=== PATIENT | female | born 1940 | race Caucasian/White ===

== ENCOUNTER 2020-07-25 18:00 | Emergency (ER) | payer OTHER ==
[~2020-07-25] VITALS: Ht 149.9 cm; Wt 48.1 kg
[~2020-07-25 18:00] MED LIST: ASPI81CH; CALCIUM; CHOL10002; CITA20 PO; Citalopram HBr40 MG; FISH1000; GABA600 PO; HYDSUL200 PO; LEVSOD50 PO; PRED5 PO
[2020-07-25 18:40] LABS: BASOPHILS ABSOLUTE AUTO 0.03 K/mm3 (0.00-0.23); BASOPHILS PERCENT AUTO 1 % (0-2); EOSINOPHILS ABSOLUTE AUTO 0.05 K/mm3 (0.00-0.68); EOSINOPHILS PERCENT AUTO 1 % (0-6); Hematocrit 41.7 % (33.0-51.0); IMMATURE GRAN ABSOLUTE AUTO 0.01 K/mm3 (0.00-0.10); IMMATURE GRAN PERCENT AUTO 0 % (0-1); LYMPHOCYTES ABSOLUTE AUTO 1.17 K/mm3 (0.84-5.20); LYMPHOCYTES PERCENT AUTO 18 % (21-46); MONOCYTES ABSOLUTE AUTO 0.91 K/mm3 (0.16-1.47); MONOCYTES PERCENT AUTO 14 % (4-13); Mean Corpuscular HGB 30.2 pg (26.0-34.0); Mean Corpuscular HGB Conc 31.2 g/dL (31.5-36.5); Mean Corpuscular Volume 97 fL (80-100); Mean Platelet Volume 11.8 fL (9.1-12.4); NEUTROPHILS ABSOLUTE AUTO 4.22 K/mm3 (1.96-9.15); NEUTROPHILS PERCENT AUTO 66 % (41-73); Platelet Count 197 K/mm3 (150-400); RDW Coefficient Variation 17.5 % (11.7-14.2); RDW Standard Deviation 61.1 fL (35.1-46.3); White Blood Cell Count 6.39 K/mm3 (4.00-11.30)
[2020-07-25 19:14] LABS: Alanine Aminotransfer (ALT/SGP 32 U/L (12-78); Albumin, Blood 2.9 g/dL (3.4-5.0); Albumin/Globulin Ratio 0.4 (0.8-1.8); Alk Phos 92 U/L (50-136); Anion Gap 2 mmol/L (6-16); Aspartate Aminotrans (AST/SGOT 52 U/L (12-37); Bilirubin, Total 0.6 mg/dL (0.1-1.0); Blood Urea Nitrogen 36 mg/dL (8-24); Bun/Creatinine Ratio 18.2 (12.0-20.0); CO2, Blood 25 mmol/L (21-32); Calcium, Blood 9.7 mg/dL (8.5-10.1); Chloride, Blood 110 mmol/L (98-108); Creatinine, Blood 1.98 mg/dL (0.40-1.00); Globulin, Blood 7.6 g/dL (2.2-4.0); Glomerular Filtration Rate 26 (60-); Glucose, Blood 106 mg/dL (70-99); Potassium, Blood 5.1 mmol/L (3.5-5.5); Sodium, Blood 137 mmol/L (136-145); Total Protein, Blood 10.5 g/dL (6.4-8.2); Troponin I <0.015 ng/mL (0.000-0.040)
== END 2020-07-25 21:48 | disposition home or self-care (01) ==
LOC: ER 18:00
PROVIDERS: Physician Assistant
DX: R07.81 Pleurodynia (principal); E03.9 Hypothyroidism, unspecified; Z88.2 Allergy status to sulfonamides; Z79.82 Long term (current) use of aspirin; Z79.899 Other long term (current) drug therapy; Z87.891 Personal history of nicotine dependence
CPT/HCPCS: 36415; 71045; 80053; 83690; 84484; 85025; 93005; 93010; 99284-25

== ENCOUNTER 2023-12-11 14:27 | Inpatient (IN) | payer OTHER ==
[~2023-12-11] VITALS: Ht 149.9 cm; Wt 46.6 kg
[~2023-12-11 14:27] MED LIST changes: +HYDR1TAB94 PO
[2023-12-11] MEDS ORDERED: SODBIC650 PO (14:41)
[2023-12-11] MEDS ORDERED: SYNTHROID50 MC1 PO (14:41)
[2023-12-11] MEDS ORDERED: FUROSEMIDE40 MG PO (14:41)
[2023-12-11] MEDS ORDERED: LOKELMA10 GM PO (14:41)
[2023-12-11] MEDS ORDERED: GABAPENTIN600 MG PO (14:41)
[2023-12-11] MEDS ORDERED: Acetaminophen 500 MG Tab PO ONE (15:20)
[2023-12-11 15:39] LABS: BASOPHILS ABSOLUTE AUTO 0.02 K/mm3 (0.00-0.23); BASOPHILS PERCENT AUTO 1 % (0-2); EOSINOPHILS ABSOLUTE AUTO 0.09 K/mm3 (0.00-0.68); EOSINOPHILS PERCENT AUTO 2 % (0-6); Hematocrit 35.7 % (33.0-51.0); Hemoglobin 10.9 g/dL (11.5-16.0); IMMATURE GRAN ABSOLUTE AUTO 0.01 K/mm3 (0.00-0.10); IMMATURE GRAN PERCENT AUTO 0 % (0-1); LYMPHOCYTES ABSOLUTE AUTO 1.01 K/mm3 (0.84-5.20); LYMPHOCYTES PERCENT AUTO 25 % (21-46); MONOCYTES ABSOLUTE AUTO 0.36 K/mm3 (0.16-1.47); MONOCYTES PERCENT AUTO 9 % (4-13); Mean Corpuscular HGB 31.1 pg (26.0-34.0); Mean Corpuscular HGB Conc 30.5 g/dL (31.5-36.5); Mean Corpuscular Volume 102 fL (80-100); NEUTROPHILS ABSOLUTE AUTO 2.51 K/mm3 (1.96-9.15); NEUTROPHILS PERCENT AUTO 63 % (41-73); Platelet Count 156 K/mm3 (150-400); RDW Coefficient Variation 17.2 % (11.7-14.2); RDW Standard Deviation 60.7 fL (35.1-46.3); Red Blood Cell Count 3.51 M/mm3 (3.80-5.20)
[2023-12-11 16:02] LABS: Albumin, Blood 2.7 g/dL (3.4-5.0); Albumin/Globulin Ratio 0.4 (0.8-1.8); Bilirubin, Total 0.4 mg/dL (0.1-1.0); Bun/Creatinine Ratio 20.5 (12.0-20.0); Creatinine, Blood 1.76 mg/dL (0.40-1.00); Globulin, Blood 6.9 g/dL (2.2-4.0); Potassium, Blood 6.1 mmol/L (3.5-5.5); Total Protein, Blood 9.6 g/dL (6.4-8.2)
[2023-12-11] MEDS ORDERED: CeFAZolin Sodium 2,000 MG in NS 100 ML IV SCH (16:20)
[2023-12-11] MEDS ORDERED: Tranexamic Acid 100 ML IV SCH (16:25)
[2023-12-11 16:59] LABS: Source, Urine Clean Catch
[2023-12-11 17:06] LABS: Appearance, Urine Clear (Clear); Bilirubin, Urine Neg (Neg); Blood, Urine Neg (Neg); Glucose Qualitative, Urine Neg (Neg); Ketones, Urine Neg (Neg); Leukocyte Esterase, Urine Neg (Neg); Nitrite, Urine Neg (Neg); Protein, Urine Neg (Neg); Specific Gravity, Urine 1.005 (1.003-1.022); Urobilinogen, Urine NORM (Normal)
[2023-12-11 17:16] LABS: Color, Urine Pale Yellow (P-Yellow)
[2023-12-11] MEDS ORDERED: Ondansetron HCl 2 MG / ML 2ML Vial IV PRN (18:30)
[2023-12-11] MEDS ORDERED: OxyCODONE HCL 5 MG TAB PO PRN (18:30)
[2023-12-11] MEDS ORDERED: FLU VACC TS2024-25(6MOS UP)/PF 45 MCG/0.5 ML SYRINGE IM SCH (18:30)
[2023-12-11] MEDS ORDERED: Acetaminophen 325 MG TABLET PO PRN (18:30)
[2023-12-11] MEDS ORDERED: FentaNYL Citrate 50 MCG/ML 2 ML Injection IV PRN (18:30)
[2023-12-11] MEDS ORDERED: CALCIUM GLUC IN NACL, ISO-OSM 100 ML IV ONE (18:30)
[2023-12-11] MEDS ORDERED: Sodium Bicarb 8.4% 1 MEQ/ML 50 ML Vial IV ONE (18:50)
[2023-12-11] MEDS ORDERED: Sodium Zirconium Cyclosilicate 10 GM Packet PO SCH (19:00)
[2023-12-11] MEDS ORDERED: Dextrose 50% 50 ML Vial IV ONE (19:50)
[2023-12-11 19:55] LABS: Albumin, Blood 2.8 g/dL (3.4-5.0); Anion Gap 8 mmol/L (3-11); Blood Urea Nitrogen 36 mg/dL (8-24); Bun/Creatinine Ratio 19.5 (12.0-20.0); CO2, Blood 21 mmol/L (21-32); Calcium, Blood 8.4 mg/dL (8.5-10.1); Chloride, Blood 117 mmol/L (98-108); Creatinine, Blood 1.85 mg/dL (0.40-1.00); Glomerular Filtration Rate 26 (60-); Glucose, Blood 92 mg/dL (70-99); Phosphorus, Blood 1.8 mg/dL (2.5-4.9); Potassium, Blood 5.7 mmol/L (3.5-5.5); Sodium, Blood 140 mmol/L (136-145)
[2023-12-11] MEDS ORDERED: Insulin Regular 100 Unit/ML 1ML Dose IV ONE (20:00)
[2023-12-11] MEDS ORDERED: D5W-NS 1,000 ML IV SCH (20:30)
[2023-12-11] MEDS ORDERED: Sodium Phosphate 10 MM in NS 250 ML IV SCH (20:30)
[2023-12-11 21:32] VITALS: BP 143/79
--- NOTE | 2023-12-11 21:45 | NUR ---
ARRIVAL TO UNIT PT ARRIVED TO UNIT VIA GURNEY FROM ER. PT TRANSFERED TO BED WITH SLIDING SHEET. PT NOT HAVING VERY MUCH PAIN AT THIS TIME. DENIES ANY N/T IN LLE. ABLE TO WIGGLE TOES AND HAS GOOD PULSES. VSS. PT FLUIDS STARTED. RIOS IN PLACE BY ER, DRAINING YELLOW URINE. NO OTHER CONCERNS AT THIS TIME, CALL LIGHT WITHIN REACH.
[2023-12-12] VITALS (23 sets, daily range): BP systolic 75–136; BP diastolic 55–85
[2023-12-12 04:31] LABS: Hematocrit 39.5 % (33.0-51.0); Hemoglobin 12.2 g/dL (11.5-16.0); Mean Corpuscular HGB 31.3 pg (26.0-34.0); Mean Corpuscular HGB Conc 30.9 g/dL (31.5-36.5); Mean Corpuscular Volume 101 fL (80-100); Mean Platelet Volume 10.6 fL (9.1-12.4); Platelet Count 145 K/mm3 (150-400); RDW Coefficient Variation 17.2 % (11.7-14.2); RDW Standard Deviation 60.3 fL (35.1-46.3); White Blood Cell Count 3.88 K/mm3 (4.00-11.30)
--- NOTE | 2023-12-12 04:31 | NUR ---
SHIFT SUMMARY NO ACUTE EVENTS SINCE COMING TO THE UNIT. PIN HAS BEEN MANAGED PER EMAR. RIOS DRAINING CLEAR YELLOW URINE. PT ABLE TO WIGGLE TOES. PT REMAINS NPO FOR SURGERY TODAY. NO OTHER CONCERNS AT THIS TIME, CALL LIGHT WITHIN REACH
[2023-12-12 04:54] LABS: Albumin, Blood 2.8 g/dL (3.4-5.0); Anion Gap 10 mmol/L (3-11); Blood Urea Nitrogen 33 mg/dL (8-24); Bun/Creatinine Ratio 17.9 (12.0-20.0); CO2, Blood 19 mmol/L (21-32); Calcium, Blood 8.7 mg/dL (8.5-10.1); Chloride, Blood 117 mmol/L (98-108); Creatinine, Blood 1.84 mg/dL (0.40-1.00); Glomerular Filtration Rate 27 (60-); Glucose, Blood 102 mg/dL (70-99); Magnesium, Blood 2.2 mg/dL (1.6-2.4); Phosphorus, Blood 2.7 mg/dL (2.5-4.9); Potassium, Blood 5.4 mmol/L (3.5-5.5); Sodium, Blood 141 mmol/L (136-145)
[2023-12-12] MEDS ORDERED: Levothyroxine Sodium 0.05 MG Tab PO SCH (06:00)
[2023-12-12] MEDS ORDERED: Sodium Bicarb 8.4% Inj 150 MEQ in Dextrose 5% 1,000 ML IV SCH (08:00)
[2023-12-12] MEDS ORDERED: Sodium Bicarbonate 650 MG Tab PO SCH (09:00)
[2023-12-12] MEDS ORDERED: Lidocaine 2%-Epineph 1:200000 20 ML SDV ONE (11:27)
[2023-12-12] MEDS ORDERED: Lactated Ringer's 1,000 ML IV SCH (12:30)
[2023-12-12] MEDS ORDERED: propofoL 20 ML IV ONE (12:41)
[2023-12-12] MEDS ORDERED: Ondansetron HCl 2 MG / ML 2ML Vial ONE (13:11)
[2023-12-12] MEDS ORDERED: FentaNYL Citrate 50 MCG/ML 2 ML Injection ONE ×2 (13:15→14:06)
--- NOTE | 2023-12-12 13:29 | NUR ---
PT TO OR AT APPROXIMATELY 1230
[2023-12-12] MEDS ORDERED: Ketorolac Tromethamine 30mg Vial ONE (13:31)
--- NOTE | 2023-12-12 14:38 | NUR ---
arrived back to unit from pacu AWAKE AND ALERT. VSS. DENIES PAIN OR N/V. PROVIDED DRINK AND SNACKS. E INCISIONS TO L HIP CDI W/GAUZE AND TEGADERM. DAUGHTER BEDSIDE. CALL LIGHT IN REACH.
[2023-12-12] MEDS ORDERED: NS 500 ML IV ONE (18:30)
[2023-12-12] MEDS ORDERED: NS 1,000 ML IV SCH (18:30)
[2023-12-12] MEDS ORDERED: NS 1,000 ML IV ONE (18:32)
--- NOTE | 2023-12-12 18:57 | NUR ---
SUMMARY PT HYPOTENSIVE AND TACHY. CALLED DR CORTEZ AND OBTAINED ORDERS FOR STAT RP AND FLUIDS. ORDERS TO CALL DR CORTEZ WITH RP RESULTS WHEN RECEIVED. WHILE SPEAKING TO DR CORTEZ, TELE CALLED AND ADVISED SUSTAINABLE DESIGN CONSULTANT THAT PT WAS HAVING ST CHANGES NOTED ON TELE. EKG DONE AND DR TERRY CALLED WHO ORDERED STAT TROPONIN. PT DENIES ANY CP, PALPITATIONS OR SOB. NS BOLUS RUNNING PER ORDERS AND LABS DRAWN. RESULTS PENDING.
--- NOTE | 2023-12-12 19:10 | NUR ---
REPORT GIVEN AND CARE TURNED OVER TO ANDREW JIMENEZ RN.
[2023-12-12 19:16] LABS: Albumin, Blood 2.4 g/dL (3.4-5.0); Anion Gap 9 mmol/L (3-11); Blood Urea Nitrogen 32 mg/dL (8-24); Bun/Creatinine Ratio 16.4 (12.0-20.0); CO2, Blood 22 mmol/L (21-32); Chloride, Blood 116 mmol/L (98-108); Creatinine, Blood 1.95 mg/dL (0.40-1.00); Glomerular Filtration Rate 25 (60-); Glucose, Blood 204 mg/dL (70-99); Phosphorus, Blood 3.5 mg/dL (2.5-4.9); Sodium, Blood 142 mmol/L (136-145)
--- NOTE | 2023-12-12 19:52 | NUR ---
CALLED LABS TO JESUSITA AND DR CORTEZ INCLUDING CHEM PROFILE AND TROP.NO CHANGE OF ORDERS.DR CORTEZ CONFIRMED TO CONTINUE NS @ 50 ML/HR IV.
[2023-12-12] MEDS ORDERED: Midodrine 5 MG Tab PO SCH (21:00)
[2023-12-12] MEDS ORDERED: CeFAZolin Sodium 2,000 MG in NS 100 ML IV SCH (21:00)
--- NOTE | 2023-12-12 22:20 | NUR ---
NOTIFIED DR CORTEZ PT CONT HYPOTENSIVE AT BP 86/55,MAP 65,PULSE 78.DR INSTRUCTED TO CONTIUE MONITORING.
[2023-12-13] VITALS (7 sets, daily range): BP systolic 78–101; BP diastolic 54–65
[2023-12-13 04:10] LABS: Hematocrit 30.1 % (33.0-51.0)
--- NOTE | 2023-12-13 06:23 | NUR ---
SHIFT SUMMARY POD 1 L HIP GAMMA NAILING PT RESTED T/O SHIFT. PAIN MANAGED PER EMAR. TOLERATING PO INTAKE. RIOS DRAINING YELLOW URINE. PT HYPOTENSIVE THIS SHIFT, ASYMPTOMATIC. DR AWARE. PT HAS X3 SITES WITH GAUZE AND TEG. PT ABLE TO WIGGLE TOES AND DENIES N/T TO LLE. VSS. NO OTHER CONCERNS AT THIS TIME, CALL LIGHT WITHIN REACH.
[2023-12-13 06:30] LABS: Albumin, Blood 2.1 g/dL (3.4-5.0); Anion Gap 8 mmol/L (3-11); Blood Urea Nitrogen 34 mg/dL (8-24); CO2, Blood 22 mmol/L (21-32); Calcium, Blood 7.2 mg/dL (8.5-10.1); Chloride, Blood 116 mmol/L (98-108); Creatinine, Blood 2.12 mg/dL (0.40-1.00); Glomerular Filtration Rate 22 (60-); Glucose, Blood 108 mg/dL (70-99); Phosphorus, Blood 4.1 mg/dL (2.5-4.9); Potassium, Blood 5.2 mmol/L (3.5-5.5); Sodium, Blood 141 mmol/L (136-145)
[2023-12-13] MEDS ORDERED: Aspirin 81 MG TabEC PO SCH (09:00)
--- NOTE | 2023-12-13 15:54 | NUR ---
VSS except for low BP of 86/54, MD aware BP went up to 101/64 by end of shift, denies SOB, denies any pain, ambulates with 1x assist and walker, on 2L NC. Lungs diminished, heart regular, bowel sounds normative, L hip 3x dressing C/D/I, neuro intact, LLE WBAT. Pt can make needs known, call ghosh in hand, bed in lowest position.
[2023-12-14 04:55] LABS: Hematocrit 28.1 % (33.0-51.0); Hemoglobin 8.3 g/dL (11.5-16.0)
[2023-12-14 05:09] VITALS: BP 98/61
[2023-12-14 05:15] LABS: Albumin, Blood 2.1 g/dL (3.4-5.0); Anion Gap 7 mmol/L (3-11); Blood Urea Nitrogen 39 mg/dL (8-24); Bun/Creatinine Ratio 18.5 (12.0-20.0); CO2, Blood 22 mmol/L (21-32); Calcium, Blood 7.2 mg/dL (8.5-10.1); Chloride, Blood 116 mmol/L (98-108); Creatinine, Blood 2.11 mg/dL (0.40-1.00); Glomerular Filtration Rate 23 (60-); Glucose, Blood 97 mg/dL (70-99); Magnesium, Blood 2.2 mg/dL (1.6-2.4); Phosphorus, Blood 4.1 mg/dL (2.5-4.9); Potassium, Blood 4.5 mmol/L (3.5-5.5); Sodium, Blood 140 mmol/L (136-145)
--- NOTE | 2023-12-14 06:09 | NUR ---
SHIFT SUMMARY POD 2 L GAMMA NAILING PT RESTED T/O SHIFT. PAIN MANAGED PER EMAR. TOLERATING PO INTAKE. RIOS IN PLCAE. DRAINING CLEAR YELLOW URINE. DRESSING TO L HIP ARE C/D/I. PT REMAINS ON 1.5L VIA NC. SATS ARE STAYING ABOVE 95%. VSS. NO OTHER CONCERNS AT THIS TIME, CALL LIGHT WITHIN REACH
[2023-12-14 07:11] VITALS: BP 101/67
[2023-12-14 09:25] LABS: SARS-Cov-2 (COVID-19) PCR, MMC NEGATIVE (NEGATIVE)
[2023-12-14 14:43] VITALS: BP 103/65
--- NOTE | 2023-12-14 15:19 | NUR ---
DISCHARGE NOTE. PT VERBALIZED UNDERSTANDING OF DISCHARGE. VSS. A&O X4. DENIES N/V N/T. PPP. DRESSING C/D/I AND CHANGED PRIOR TO DEPARTURE. EATING/DRINKING/VOIDING. PT WHEELED OUT TO TRANSPORT VEHICLE HEADED TO SNF.
[2023-12-15] MEDS ORDERED: Sodium Zirconium Cyclosilicate 10 GM Packet PO SCH (09:00)
== END 2023-12-14 14:58 | DRG 481 ==
LOC: ER 14:27 → SURS 18:26
PROVIDERS: Emergency Medicine; Internal Medicine; Internal Medicine Nephrology; Nurse Practitioner Acute Care; Orthopaedic Surgery Sports Medicine; ADMIT Student in an Organized Health Care Education/Training Program
PROC: 0QH734Z Insertion of Internal Fixation Device into Left Upper Femur, Percutaneous Approach (ICD-10-PCS; principal; 2023-12-12 12:30)
DX: S72.142A Displaced intertrochanteric fracture of left femur, initial encounter for closed fracture (principal); E87.20 Acidosis, unspecified; N18.4 Chronic kidney disease, stage 4 (severe); N17.9 Acute kidney failure, unspecified; N25.81 Secondary hyperparathyroidism of renal origin; W18.30XA Fall on same level, unspecified, initial encounter; E83.39 Other disorders of phosphorus metabolism; D63.1 Anemia in chronic kidney disease; E87.5 Hyperkalemia; I95.9 Hypotension, unspecified; E03.9 Hypothyroidism, unspecified; H26.9 Unspecified cataract; Z98.890 Other specified postprocedural states; Z93.3 Colostomy status; Z98.42 Cataract extraction status, left eye; Z98.41 Cataract extraction status, right eye; Z88.2 Allergy status to sulfonamides; Z79.890 Hormone replacement therapy; Z79.899 Other long term (current) drug therapy
CPT/HCPCS: 36415; 51702; 73502; 76770; 80053; 80069; 81003; 82550; 83735; 84132; 84484; 85014; 85018; 85025; 85027; 93005; 93010; 94762; 97110; 97162; 97530; 99284-25; A9270; C1713; J0612; J0690; J1815; J1885; J2405; J2704; J3010; J7030; J7040; J7042; J7050; J7070; J7120; J7799; U0002